=== PATIENT | female | born 1975 | race Caucasian/White ===

== ENCOUNTER 2019-02-22 06:53 | Emergency (ER) | payer OTHER ==
[~2019-02-22] VITALS: Ht 175.3 cm; Wt 88.5 kg
[2019-02-22 07:31] LABS: ABSOLUTE NEUTROPHILS 11.2 thou/uL (1.4-8.2); BASOPHILS 0.6 % (0.0-2.0); EOSINOPHILS 2.9 % (0.0-3.0); HEMATOCRIT 39.5 % (37.0-47.0); LYMPHOCYTES 25.1 % (24.0-44.0); MCH 27.9 pg (26.0-34.0); MCV 84.6 fL (80.0-100.0); MONOCYTES 4.9 % (1.0-8.0); PLATELET COUNT 379 thou/uL (150-400); POLYS 66.5 % (36.0-66.0); RBC 4.66 mil/uL (4.20-5.00); RDW 14.3 % (10.5-14.5); WBC 16.9 thou/uL (4.0-11.0)
[2019-02-22 07:39] LABS: CALCIUM 9.1 mg/dL (8.5-10.1); POTASSIUM 3.6 mmol/L (3.5-5.1)
[2019-02-22 07:46] LABS: ALBUMIN 3.7 g/dL (3.4-5.0); TOTAL BILIRUBIN 0.3 mg/dL (<0.1-1.0); TOTAL PROTEIN 7.7 g/dL (6.4-8.2)
[2019-02-22 07:51] LABS: URINE BILIRUBIN NEGATIVE (Negative); URINE BLOOD 1+ (Negative); URINE CLARITY SL CLOUDY; URINE COLOR YELLOW; URINE GLUCOSE-RANDOM* NEGATIVE (Negative); URINE KETONES TRACE (Negative); URINE NITRITE-REFLEX NEGATIVE (Negative); URINE PROTEIN (DIPSTICK) 1+ (Negative); URINE SPECIFIC GRAVITY >= 1.030 (1.005-1.035); URINE UROBILINOGEN 0.2 E.U./dl (0.2-1.0)
[2019-02-22 07:52] LABS: URINE LEUKOCYTES-REFLEX 1+ (Negative)
--- NOTE | 2019-02-22 08:01 | EKG ---
[address] [address] [place] [address] ELECTROCARDIOGRAM REPORT Name: JOSE RAFAEL TAMAYO Room #: [facility] LULU Costa#: [id number] Admission: 02/22/19 Attend Phys: Discharge: Date of : 77 Report #: [id number] THIS REPORT FOR: //name// [facility] ED Test Date: 2019-02-22 Test Time: 07:40:27 Pat Name: JOSE RAFAEL TAMAYO Department: Room: Gender: F [employer]: : 1975 Requested By: Delmer Esteban Order Number: [id number] MD: Josh Zavala Measurements Intervals [place] Rate: 86 P: 65 IA: 151 QRS: 39 QRSD: 90 T: 45 QT: 366 QTc: 438 Interpretive Statements Sinus rhythm Poor R wave progression No previous ECG available for comparison Electronically Signed On 02-22-2019 8:01:14 CDT by Josh Zavala [email or web address] <ELECTRONICALLY SIGNED> By: Josh Zavala MD, [facility] 02/22/19 0801 0740 0740 Josh Zavala MD, FACC /EPI
[2019-02-22 08:23] LABS: CASTS None Seen /LPF (None Seen); SQUAMOUS >10 Many /LPF (0-3); URINE WBC-REFLEX 6-15 Few /HPF (0-5)
[2019-02-22 08:24] LABS: CALCIUM OXALATE 0-3 Few /LPF (None Seen); URINE RBC 0-2 Rare /HPF (0-2)
[2019-02-22] MEDS ORDERED: SENNA-DOCUSATE1 EAC1 PO (10:33)
[2019-02-22] MEDS ORDERED: NORCO 5-325 TA1 EAC1 PO (10:33)
[2019-02-22] MEDS ORDERED: IBUPROFEN 600600 M1 PO (10:33)
[2019-02-22] MEDS ORDERED: BACTRIM DS TAB1 EACH PO (10:33)
[2019-02-22 11:05] VITALS: BP 117/57
== END 2019-02-22 11:32 | disposition home or self-care (01) ==
LOC: ER 06:53
PROVIDERS: Emergency Medicine
DX: N39.0 Urinary tract infection, site not specified (principal); F17.210 Nicotine dependence, cigarettes, uncomplicated

== ENCOUNTER 2021-08-30 19:09 | Emergency (ER) | payer OTHER ==
[~2021-08-30] VITALS: Ht 175.3 cm; Wt 97.5 kg
--- NOTE | ~2021-08-30 | EMS ---
[address] [address] EMS Patient Care Report Name: JOSE RAFAEL TAMAYO Room #: REG LULU Costa#: [id number] Admission: 08/30/21 Attend Phys: Discharge: Date of : [birth year] Report #: [id number] THIS REPORT FOR: //name// Report Transmitted: 08/30/2021 21:20 EMS Care Summary [place], [place]/[facility] Incident [id number] @ 08/30/2021 18:30 Incident Location [address] [place] [address] Patient JOSE RAFAEL TAMAYO Female, 45 Years 1975 Patient Address [address] [place] [id number] Patient History None Reported, Patient Allergies No known allergies, Patient Medications None Reported, Chief Complaint chest wall pain Disposition Transported No Lights/[place] Reason Chest Pain (Non-Traumatic) Transported To [facility] Narrative pt found seated in bed, tearful. she states 30 min GTA she had sudden onset CP. no SOB. pt states pain is worse whenever she turns her torso, or moves [address] [address] EMS Patient Care Report Name: JOSE RAFAEL TAMAYO Room #: REG LULU Costa#: [id number] Admission: 08/30/21 Attend Phys: Discharge: Date of : 77 Report #: [id number] her arms. she states pain is intermittent. she req eval at [facility]. tx as listed in flow chart. pt ambulatory to cot, transport w/o change. report to staff rm 5. Initial Vitals @18:40P: 85, @18:42P: 101,BP: 168/101,CO: 1,SpO2: 100, @18:57P: 109,R: 18,BP: 198/100,Pain: 7/10,GCS: 15,SpO2: 100,Revised Trauma: 12, Assessments @18:38MENTAL:No Abnormalities,SKIN:No Abnormalities,HEENT:Head/Face: No Abnormalities,LUNG SOUNDS:ABDOMEN:PELVIS//GI:EXTREMITIES:PULSE:Radial: 2+ Normal,NEURO:No Abnormalities, Impression Chest Pain / Discomfort Procedures @18:38 ALS Assessment Response: Unchanged @18:40 12-Lead ECG Response: Unchanged @18:43 IV Therapy - Saline Lock 10cc (20 ga) Site: Hand-Left Response: UnchangedSucceeded @18:39 3-Lead ECG Response: UnchangedSucceeded Timeline 18:27,Call Received 18:27,Dispatch Notified 18:30,Dispatched 18:31,En Route 18:35,On Scene 18:38,At Patient 18:38,ALS Assessment,Response: Unchanged 18:39,3-Lead ECG,Response: UnchangedSucceeded, 18:40,12-Lead ECG,Response: Unchanged 18:40,BP: / M,PULSE: 85,RR: R,SPO2: Ox,ETCO2: ,BG: ,PAIN: ,GCS: , 18:42,BP: 168/101 M,PULSE: 101,RR: R,SPO2: 100 Ox,ETCO2: ,BG: ,PAIN: ,GCS: , 18:43,IV Therapy - Saline Lock 10cc 20 ga Site: Hand-Left,Response: UnchangedSucceeded, 18:53,Depart Scene 18:57,BP: 198/100 M,PULSE: 109,RR: 18 R,SPO2: 100 Ox,ETCO2: ,BG: ,PAIN: 7,GCS: 15, 19:04,At Destination 19:23,Call Closed Disclaimer [facility] [address] [place] [address] EMS Patient Care Report Name: JOSE RAFAEL TAMAYO [facility] [id number] Admission: 08/30/21 Attend Phys: Discharge: Date of : 77 Report #: [id number] v1.1 Copyright 2021 [employer] This EMS Care Summary contains data elements from the applicable legal record (which may be displayed differently). It is designed to provide pertinent information for the following purposes: continuity of care, clinical quality, and state data reporting. The complete legal record is available to ED staff and administrators of the receiving hospital in [employer] Patient Tracker. All data is provided "as is."
[~2021-08-30 19:09] MED LIST: BACTRIM DS TAB1 EACH PO; IBUPROFEN 600600 M1 PO; NORCO 5-325 TA1 EAC1 PO; SENNA-DOCUSATE1 EAC1 PO
[2021-08-30 19:49] LABS: ABSOLUTE NEUTROPHILS 13.1 thou/uL (1.4-8.2); BASOPHILS 0.8 % (0.0-2.0); EOSINOPHILS 1.6 % (0.0-3.0); HEMATOCRIT 40.1 % (37.0-47.0); HEMOGLOBIN 13.1 gm/dL (12.0-15.0); LYMPHOCYTES 20.3 % (24.0-44.0); MCH 27.1 pg (26.0-34.0); MCHC 32.6 g/dL (28.0-37.0); MCV 83.2 fL (80.0-100.0); MONOCYTES 4.7 % (1.0-8.0); PLATELET COUNT 397 thou/uL (150-400); POLYS 72.6 % (36.0-66.0); RBC 4.82 mil/uL (4.20-5.00); RDW 14.8 % (10.5-14.5); WBC 18.1 thou/uL (4.0-11.0)
[2021-08-30 20:00] LABS: CREATININE 0.9 mg/dL (0.6-1.0); POTASSIUM 3.1 mmol/L (3.5-5.1)
[2021-08-30 20:09] LABS: ALBUMIN 3.7 g/dL (3.4-5.0); TOTAL BILIRUBIN 0.6 mg/dL (0.2-1.0); TOTAL PROTEIN 7.4 g/dL (6.4-8.2)
[2021-08-30 23:18] VITALS: BP 142/52
--- NOTE | 2021-08-31 11:08 | EKG ---
[address] [address] [employer] [place] [address] ELECTROCARDIOGRAM REPORT Name: JOSE RAFAEL TAMAYO Room #: DEP LULU Costa#: [id number] Admission: 08/30/21 Attend Phys: Discharge: 08/30/21 Date of : [birth year] Report #: [id number] [facility] ED Test Date: 2021-08-30 Test Time: 19:36:10 Pat Name: JOSE RAFAEL TAMAYO Department: Room: Gender: F [employer]: ALEXI : 1975 Requested By: Taye Frazier Order Number: [id number] MD: Josh Zavala Measurements Intervals [place] Rate: 83 P: 64 NM: 153 QRS: 22 QRSD: 103 T: 55 QT: 386 QTc: 454 Interpretive Statements Sinus rhythm Low voltage, extremity leads Compared to ECG 02/22/2019 07:40:27 No significant change was found Electronically Signed On 08-31-2021 11:07:52 PLY BANDER by Josh Zavala [email or web address] <ELECTRONICALLY SIGNED> By: Josh Zavala MD, [facility] 08/31/21 1107 1936 35 Josh Zavala MD, FACC /EPI
== END 2021-08-30 23:26 | disposition home or self-care (01) ==
LOC: ER 19:09
PROVIDERS: Emergency Medicine
DX: R07.89 Other chest pain (principal); D72.829 Elevated white blood cell count, unspecified